=== PATIENT | male | born 1970 | race Caucasian/White ===

== ENCOUNTER 2016-09-30 21:47 | Emergency (ER) | payer MEDICARE, OTHER | END 2016-09-30 23:40 | disposition home or self-care (01) | LOC: ER 21:47 | DX: E11.622 Type 2 diabetes mellitus with other skin ulcer (principal); L97.223 Non-pressure chronic ulcer of left calf with necrosis of muscle; L97.813 Non-pressure chronic ulcer of other part of right lower leg with necrosis of muscle; E66.01 Morbid (severe) obesity due to excess calories; I10 Essential (primary) hypertension ==